=== PATIENT | female | born 1980 | race Hispanic/Latino ===

== ENCOUNTER 2022-08-31 12:54 | Inpatient (IN) | payer MEDICAID, OTHER ==
[~2022-08-31] VITALS: Ht 160 cm; Wt 84.8 kg
[2022-08-31] MEDS ORDERED: LABETALOL 20MG SYG IV ONE ×2 (13:00→15:00)
[2022-08-31] MEDS ORDERED: CEFTRIAXONE 1G VIAL IVP ONE (13:00)
[2022-08-31 13:14] LABS: BASOPHILS % (AUTO) 0.2 % (0.0-5.0); EOSINOPHILS % (AUTO) 1.9 % (0.0-8.0); HEMATOCRIT 34.4 % (36-48); LYMPHOCYTES % (AUTO) 13.4 % (21.0-51.0); MEAN CORPUSCULAR HEMOGLOBIN 26.7 pg (27.0-33.0); MEAN CORPUSCULAR HGB CONC 32.8 g/dL (32.0-36.0); MEAN CORPUSCULAR VOLUME 81.1 fL (79-99); MONOCYTES % (AUTO) 6.9 % (3.0-13.0); NEUTROPHILS % (AUTO) 77.1 % (40.0-77.0); PLATELET COUNT (AUTO) 253 K/uL (130-400); RED BLOOD CELL COUNT(AUTO) 4.24 MIL/uL (4.00-5.50); RED CELL DISTRIBUTION WIDTH 14.6 % (11.0-15.5); WHITE BLOOD COUNT (AUTO) 5.8 K/uL (4.8-10.8)
[2022-08-31 13:28] LABS: ALBUMIN 1.4 g/dL (3.5-5.0); CREATININE 0.7 mg/dL (0.5-1.5); TOTAL PROTEIN, SERUM 5.5 g/dL (6.0-8.3)
[2022-08-31 13:31] LABS: POTASSIUM 2.7 mmol/L (3.5-5.1)
[2022-08-31] MEDS ORDERED: POTASSIUM CHLORIDE 20 MEQ/100 ML BAG IV SCH ×2 (15:00→22:30)
[2022-08-31] MEDS ORDERED: ASPIRIN 81MG CHEW TAB PO ONE (15:00)
[2022-08-31] MEDS ORDERED: HYDRALAZINE 20MG/ML VIAL IV ONE (15:30)
[2022-08-31] MEDS: HYDRALAZINE 25MG TABLET PO SCH (15:39)
[2022-08-31] MEDS ORDERED: KCL 20 MEQ ERTAB PO ONE ×2 (17:30→22:30)
[2022-08-31] MEDS ORDERED: AMLODIPINE 5 MG TAB PO ONE (18:00)
[2022-08-31] MEDS ORDERED: LABETALOL 20MG VIAL IV PRN (18:00)
[2022-08-31 18:08] LABS: HEMOGLOBIN A1C 5.5 % (4.0-6.0)
[2022-08-31 18:22] LABS: APPEARANCE,URINE CLOUDY (CLEAR); BILIRUBIN,URINE NEGATIVE (NEGATIVE); COLOR,URINE LIGHT-YELLOW (YELLOW); GLUCOSE, URINE (UA) NEGATIVE (NEGATIVE); KETONES,URINE NEGATIVE (NEGATIVE); LEUKOCYTE ESTERASE ,URINE NEGATIVE Leu/uL (NEGATIVE); NITRATE,URINE NEGATIVE (NEGATIVE); OCCULT BLOOD,URINE MODERATE (NEGATIVE); PH,URINE 6.5 (5.0-8.0); PROTEIN,URINE 600 mg/dL (NEGATIVE); UROBILINOGEN,URINE 0.2 mg/dL (0.2-1.0)
[2022-08-31 18:25] LABS: HCG,QUALITATIVE URINE NEGATIVE (NEGATIVE)
[2022-08-31 18:28] LABS: AMPHET/METH SCREEN,URINE NEGATIVE (NEGATIVE); BARBITURATE SCREEN, URINE NEGATIVE (NEGATIVE); BENZODIAZEPINES SCREEN,URINE NEGATIVE (NEGATIVE); CANNABINOID SCREEN,URINE NEGATIVE (NEGATIVE); COCAINE SCREEN,URINE NEGATIVE (NEGATIVE); OPIATE SCREEN,URINE NEGATIVE (NEGATIVE); PHENCYCLIDINE SCREEN,URINE NEGATIVE (NEGATIVE)
[2022-08-31 18:34] LABS: BACTERIA,URINE FEW /HPF (None Seen); MUCUS,URINE RARE LPF (None Seen); SQUAMOUS EPITHELIAL CELL,UR FEW /HPF (0-2)
[2022-08-31 20:24] LABS: CREATININE 0.7 mg/dL (0.5-1.5)
[2022-08-31 20:33] LABS: POTASSIUM 2.5 mmol/L (3.5-5.1)
[2022-08-31 22:45] VITALS: BP 150/74
[2022-09-01] VITALS (7 sets, daily range): BP systolic 152–193; BP diastolic 84–97
[2022-09-01] MEDS: AMLODIPINE 5 MG TAB PO SCH (08:25)
[2022-09-01] MEDS ORDERED: POTASSIUM CHLORIDE 10% ELIXIR 20 MEQ/15 ML UDCUP PO PRN (08:30)
[2022-09-01] MEDS: SPIRONOLACTONE 25 MG TAB PO SCH (08:45)
[2022-09-01 09:02] LABS: CREATININE 0.7 mg/dL (0.5-1.5); MAGNESIUM 1.5 mg/dL (1.80-2.40)
[2022-09-01 09:07] LABS: HEMATOCRIT 32.7 % (36-48); MEAN CORPUSCULAR HEMOGLOBIN 26.6 pg (27.0-33.0); MEAN CORPUSCULAR HGB CONC 32.1 g/dL (32.0-36.0); RED BLOOD CELL COUNT(AUTO) 3.94 MIL/uL (4.00-5.50); RED CELL DISTRIBUTION WIDTH 14.6 % (11.0-15.5); WHITE BLOOD COUNT (AUTO) 6.7 K/uL (4.8-10.8)
[2022-09-01 09:08] LABS: POTASSIUM 2.5 mmol/L (3.5-5.1)
[2022-09-01] MEDS: POTASSIUM CHLORIDE 20MEQ/100ML 100 ML IV PRN ×2 (09:18→11:23)
[2022-09-01] MEDS: LIDOCAINE HCL-MPF 1% 2ML VIAL IV PRN ×2 (09:20→11:23)
[2022-09-01] MEDS: MAGNESIUM 2GM PREMIX 50ML 50 ML IV PRN (09:21)
[2022-09-01 09:22] LABS: ALBUMIN 1.4 g/dL (3.5-5.0); TOTAL PROTEIN, SERUM 5.4 g/dL (6.0-8.3)
[2022-09-01] MEDS ORDERED: PROPOFOL 10 MG/ML 20ML VIAL IV ONE (14:30)
[2022-09-01] MEDS: HYDRALAZINE 25MG TABLET PO SCH (14:33)
[2022-09-01] MEDS ORDERED: GLYCOPYRROLATE 1 MG/5 ML SYRINGE ONE (14:41)
[2022-09-01] MEDS ORDERED: FENTANYL CITRATE PF 50 MCG/1 ML 2ML VIAL ONE (14:50)
[2022-09-01] MEDS: LABETALOL 20MG SYG IV PRN ×2 (16:50→23:58)
[2022-09-01] MEDS: KCL 20 MEQ ERTAB PO PRN ×3 (17:55→22:59)
[2022-09-02] VITALS (7 sets, daily range): BP systolic 160–196; BP diastolic 87–110
[2022-09-02 04:36] LABS: HEPATITIS A IGM ANTIBODY Non-Reactive (Nonreactive); HEPATITIS B CORE IGM ANTIBODY Non-Reactive (Negative); HEPATITIS B SURFACE ANTIGEN Non-Reactive (Nonreactive); HEPATITIS C ANTIBODY Non-Reactive (Nonreactive)
[2022-09-02 05:14] LABS: MEAN CORPUSCULAR HEMOGLOBIN 26.6 pg (27.0-33.0); MEAN CORPUSCULAR HGB CONC 31.2 g/dL (32.0-36.0); MEAN CORPUSCULAR VOLUME 85.3 fL (79-99); PLATELET COUNT (AUTO) 257 K/uL (130-400); RED BLOOD CELL COUNT(AUTO) 3.87 MIL/uL (4.00-5.50); RED CELL DISTRIBUTION WIDTH 14.9 % (11.0-15.5); WHITE BLOOD COUNT (AUTO) 5.9 K/uL (4.8-10.8)
[2022-09-02 05:17] LABS: ALBUMIN 1.3 g/dL (3.5-5.0); CREATININE 0.5 mg/dL (0.5-1.5); MAGNESIUM 1.8 mg/dL (1.80-2.40); PHOSPHORUS 3.7 mg/dL (2.5-4.9); POTASSIUM 3.9 mmol/L (3.5-5.1); TOTAL PROTEIN, SERUM 5.5 g/dL (6.0-8.3); URIC ACID 6.3 mg/dL (2.6-7.2)
[2022-09-02 05:40] LABS: % IRON SATURATION 14.5 % (22-44)
[2022-09-02] MEDS: MAGNESIUM 2GM PREMIX 50ML 50 ML IV PRN (05:46)
[2022-09-02 06:25] LABS: LYMPHOCYTES % (MANUAL) 10 % (22-44); MAN.DIFF COMMENT-IMPRESSION MANUAL DIFFERENTIAL; MONOCYTES % (MANUAL) 2 % (2-9); PLATELET MORPHOLOGY COMMENT ADEQUATE; SEGMENTED NEUTROPHILS % 88 % (40-70)
[2022-09-02] MEDS: LOSARTAN 100 MG TABLET PO SCH (08:26)
[2022-09-02] MEDS: SPIRONOLACTONE 25 MG TAB PO SCH (08:27)
[2022-09-02] MEDS: AMLODIPINE 5 MG TAB PO SCH ×2 (08:28→10:02)
[2022-09-02] MEDS: HYDRALAZINE 25MG TABLET PO SCH (08:29)
[2022-09-02] MEDS ORDERED: HYDRALAZINE 25MG TABLET PO SCH (09:00)
[2022-09-02] MEDS ORDERED: LISINOPRIL 5 MG TABLET PO ONE (09:00)
[2022-09-02] MEDS: LABETALOL 20MG SYG IV PRN ×2 (14:56→23:25)
[2022-09-02] MEDS ORDERED: COMPOUND IV MISC 1 EACH IVSOLN MISC PRN (16:00)
[2022-09-03 03:01] VITALS: BP 171/93
[2022-09-03 05:01] LABS: BASOPHILS % (AUTO) 0.4 % (0.0-5.0); EOSINOPHILS % (AUTO) 3.4 % (0.0-8.0); HEMATOCRIT 31.6 % (36-48); LYMPHOCYTES % (AUTO) 17.8 % (21.0-51.0); MEAN CORPUSCULAR HEMOGLOBIN 26.2 pg (27.0-33.0); MEAN CORPUSCULAR HGB CONC 32.3 g/dL (32.0-36.0); MEAN CORPUSCULAR VOLUME 81.2 fL (79-99); MONOCYTES % (AUTO) 7.1 % (3.0-13.0); NEUTROPHILS % (AUTO) 70.9 % (40.0-77.0); PLATELET COUNT (AUTO) 231 K/uL (130-400); RED BLOOD CELL COUNT(AUTO) 3.89 MIL/uL (4.00-5.50); RED CELL DISTRIBUTION WIDTH 14.8 % (11.0-15.5); WHITE BLOOD COUNT (AUTO) 5.2 K/uL (4.8-10.8)
[2022-09-03 05:13] LABS: ALBUMIN 1.3 g/dL (3.5-5.0); CREATININE 0.6 mg/dL (0.5-1.5); POTASSIUM 3.1 mmol/L (3.5-5.1); TOTAL PROTEIN, SERUM 5.2 g/dL (6.0-8.3)
[2022-09-03 05:15] LABS: B-TYPE NATRIURETIC PEPTIDE 363 pg/mL (0-100)
[2022-09-03] MEDS: LEVOTHYROXINE 25 MCG TABLET PO SCH (06:05)
[2022-09-03] MEDS: KCL 20 MEQ ERTAB PO PRN ×3 (06:05→10:54)
[2022-09-03 07:40] VITALS: BP 160/108
[2022-09-03] MEDS: SPIRONOLACTONE 25 MG TAB PO SCH (08:25)
[2022-09-03] MEDS: LOSARTAN 100 MG TABLET PO SCH (08:25)
[2022-09-03] MEDS: AMLODIPINE 5 MG TAB PO SCH (08:25)
[2022-09-03] MEDS: IRON SUCROSE COMPLEX 300 MG in 0.9% NACL 250ML 250 ML IV SCH (08:30)
[2022-09-03 11:40] VITALS: BP 176/99
[2022-09-03] MEDS ORDERED: FUROSEMIDE 40MG VIAL IV SCH (12:00)
[2022-09-03] MEDS: LABETALOL 20MG SYG IV PRN (12:37)
[2022-09-03 15:40] VITALS: BP 146/97
[2022-09-03] MEDS: HYDRALAZINE 25MG TABLET PO SCH (19:06)
[2022-09-03] MEDS ORDERED: METOPROLOL TARTRATE 50 MG TAB ONE (19:16)
[2022-09-03] MEDS: METOPROLOL TARTRATE 50 MG TAB PO SCH (19:32)
[2022-09-03 19:33] VITALS: BP 175/92
[2022-09-03 23:07] VITALS: BP 169/94
[2022-09-04 03:55] VITALS: BP 161/88
[2022-09-04 04:55] LABS: BASOPHILS % (AUTO) 0.5 % (0.0-5.0); EOSINOPHILS % (AUTO) 3.8 % (0.0-8.0); HEMATOCRIT 32.5 % (36-48); LYMPHOCYTES % (AUTO) 14.9 % (21.0-51.0); MEAN CORPUSCULAR HEMOGLOBIN 26.3 pg (27.0-33.0); MEAN CORPUSCULAR HGB CONC 31.7 g/dL (32.0-36.0); MEAN CORPUSCULAR VOLUME 83.1 fL (79-99); MONOCYTES % (AUTO) 8.2 % (3.0-13.0); NEUTROPHILS % (AUTO) 72.3 % (40.0-77.0); PLATELET COUNT (AUTO) 232 K/uL (130-400); RED BLOOD CELL COUNT(AUTO) 3.91 MIL/uL (4.00-5.50); RED CELL DISTRIBUTION WIDTH 14.8 % (11.0-15.5); WHITE BLOOD COUNT (AUTO) 6.3 K/uL (4.8-10.8)
[2022-09-04 05:10] LABS: CREATININE 0.5 mg/dL (0.5-1.5); POTASSIUM 3.5 mmol/L (3.5-5.1)
[2022-09-04] MEDS: LEVOTHYROXINE 25 MCG TABLET PO SCH (06:03)
[2022-09-04] MEDS: KCL 20 MEQ ERTAB PO PRN ×2 (06:04→08:25)
[2022-09-04 07:50] VITALS: BP 136/69
[2022-09-04] MEDS: IRON SUCROSE COMPLEX 300 MG in 0.9% NACL 250ML 250 ML IV SCH (08:23)
[2022-09-04] MEDS: AMLODIPINE 5 MG TAB PO SCH (08:24)
[2022-09-04] MEDS: METOPROLOL TARTRATE 50 MG TAB PO SCH ×2 (08:24→20:12)
[2022-09-04] MEDS: LOSARTAN 100 MG TABLET PO SCH (08:24)
[2022-09-04] MEDS: SPIRONOLACTONE 25 MG TAB PO SCH (08:24)
[2022-09-04 11:55] VITALS: BP 137/89
[2022-09-04] MEDS ORDERED: FUROSEMIDE 40MG VIAL IV SCH (12:00)
[2022-09-04 16:10] VITALS: BP 142/82
[2022-09-04 20:30] VITALS: BP 144/86
[2022-09-04] MEDS: LABETALOL 20MG SYG IV PRN (23:45)
[2022-09-05] VITALS (13 sets, daily range): BP systolic 142–186; BP diastolic 76–96
[2022-09-05] MEDS: LEVOTHYROXINE 25 MCG TABLET PO SCH (05:03)
[2022-09-05 05:24] LABS: BASOPHILS % (AUTO) 0.5 % (0.0-5.0); EOSINOPHILS % (AUTO) 3.4 % (0.0-8.0); HEMATOCRIT 32.9 % (36-48); LYMPHOCYTES % (AUTO) 15.6 % (21.0-51.0); MEAN CORPUSCULAR HEMOGLOBIN 26.6 pg (27.0-33.0); MEAN CORPUSCULAR VOLUME 85.9 fL (79-99); MONOCYTES % (AUTO) 9.1 % (3.0-13.0); NEUTROPHILS % (AUTO) 70.9 % (40.0-77.0); PLATELET COUNT (AUTO) 236 K/uL (130-400); RED BLOOD CELL COUNT(AUTO) 3.83 MIL/uL (4.00-5.50); RED CELL DISTRIBUTION WIDTH 14.7 % (11.0-15.5); WHITE BLOOD COUNT (AUTO) 5.6 K/uL (4.8-10.8)
[2022-09-05 05:37] LABS: INR 0.95 (0.85-1.15); PROTHROMBIN TIME 10.4 SEC (9.6-11.6)
[2022-09-05 05:38] LABS: PARTIAL THROMBOPLASTIN TIME 33.1 SEC (26.3-35.5)
[2022-09-05 05:48] LABS: CREATININE 0.6 mg/dL (0.5-1.5); PHOSPHORUS 4.5 mg/dL (2.5-4.9); POTASSIUM 3.3 mmol/L (3.5-5.1)
[2022-09-05] MEDS: SPIRONOLACTONE 25 MG TAB PO SCH (08:04)
[2022-09-05] MEDS: LOSARTAN 100 MG TABLET PO SCH (08:05)
[2022-09-05] MEDS: AMLODIPINE 5 MG TAB PO SCH (08:05)
[2022-09-05] MEDS: HYDRALAZINE 25MG TABLET PO SCH (08:05)
[2022-09-05] MEDS: METOPROLOL TARTRATE 50 MG TAB PO SCH ×2 (08:05→20:25)
[2022-09-05] MEDS: IRON SUCROSE COMPLEX 300 MG in 0.9% NACL 250ML 250 ML IV SCH (09:13)
[2022-09-05] MEDS ORDERED: FENTANYL CITRATE PF 50 MCG/1 ML 2ML VIAL ONE (15:05)
[2022-09-05] MEDS ORDERED: MIDAZOLAM HCL 1 MG/ML 2ML VIAL ONE (15:05)
[2022-09-05] MEDS ORDERED: LIDOCAINE HCL 1% 20 ML VIAL ONE (16:23)
[2022-09-06 03:27] VITALS: BP 157/94
[2022-09-06 05:34] LABS: MEAN CORPUSCULAR HEMOGLOBIN 26.3 pg (27.0-33.0); MEAN CORPUSCULAR HGB CONC 31.5 g/dL (32.0-36.0); MEAN CORPUSCULAR VOLUME 83.5 fL (79-99); RED BLOOD CELL COUNT(AUTO) 3.95 MIL/uL (4.00-5.50); RED CELL DISTRIBUTION WIDTH 14.7 % (11.0-15.5); WHITE BLOOD COUNT (AUTO) 5.3 K/uL (4.8-10.8)
[2022-09-06 05:51] LABS: ALBUMIN 1.4 g/dL (3.5-5.0); CREATININE 0.6 mg/dL (0.5-1.5); POTASSIUM 3.2 mmol/L (3.5-5.1); TOTAL PROTEIN, SERUM 5.3 g/dL (6.0-8.3)
[2022-09-06] MEDS: LEVOTHYROXINE 25 MCG TABLET PO SCH (06:02)
[2022-09-06] MEDS: KCL 20 MEQ ERTAB PO PRN ×3 (06:37→14:00)
[2022-09-06 08:00] VITALS: BP 154/86
[2022-09-06] MEDS: METOPROLOL TARTRATE 50 MG TAB PO SCH ×2 (09:01→19:37)
[2022-09-06] MEDS: SPIRONOLACTONE 25 MG TAB PO SCH (09:01)
[2022-09-06] MEDS: AMLODIPINE 5 MG TAB PO SCH (09:01)
[2022-09-06] MEDS: LOSARTAN 100 MG TABLET PO SCH (09:01)
[2022-09-06] MEDS: HYDRALAZINE 25MG TABLET PO SCH (09:02)
[2022-09-06 11:39] VITALS: BP 139/85
[2022-09-06] MEDS: FOLIC ACID 1 MG TABLET PO SCH (13:55)
[2022-09-06] MEDS: CYANOCOBALAMIN (VITAMIN B-12) 1,000 MCG TABLET PO SCH (13:55)
[2022-09-06 16:00] VITALS: BP 133/76
[2022-09-06 20:14] VITALS: BP 147/85
[2022-09-06 23:39] VITALS: BP 130/81
[2022-09-07 04:22] VITALS: BP 142/76
[2022-09-07] MEDS: LEVOTHYROXINE 25 MCG TABLET PO SCH (05:17)
[2022-09-07] MEDS: KCL 20 MEQ ERTAB PO PRN ×2 (05:18→12:55)
[2022-09-07 08:00] VITALS: BP 138/77
[2022-09-07] MEDS: LOSARTAN 100 MG TABLET PO SCH (08:54)
[2022-09-07] MEDS: FOLIC ACID 1 MG TABLET PO SCH (08:54)
[2022-09-07] MEDS: AMLODIPINE 5 MG TAB PO SCH (08:54)
[2022-09-07] MEDS: SPIRONOLACTONE 25 MG TAB PO SCH (08:54)
[2022-09-07] MEDS: CYANOCOBALAMIN (VITAMIN B-12) 1,000 MCG TABLET PO SCH (08:54)
[2022-09-07] MEDS: METOPROLOL TARTRATE 50 MG TAB PO SCH (08:54)
[2022-09-07] MEDS: HYDRALAZINE 25MG TABLET PO SCH (08:55)
[2022-09-07] MEDS ORDERED: POTASSIUM CHLORIDE 20 MEQ/100 ML BAG IV SCH (09:30)
[2022-09-07] MEDS: MAGNESIUM 2GM PREMIX 50ML 50 ML IV PRN (10:08)
[2022-09-07] MEDS: LIDOCAINE HCL-MPF 1% 2ML VIAL IV PRN (10:23)
[2022-09-07 11:30] VITALS: BP 135/82
[2022-09-07] MEDS ORDERED: MAGNESIUM OXIDE 400 MG TABLET PO SCH (12:00)
[2022-09-07] MEDS ORDERED: CYAN-52 PO (12:40)
[2022-09-07] MEDS ORDERED: AMLO5TAB4 PO (12:40)
[2022-09-07] MEDS ORDERED: LEVO25TA9 PO (12:40)
[2022-09-07] MEDS ORDERED: FOLI1 PO (12:40)
[2022-09-07] MEDS ORDERED: SPIR25TA6 PO (12:40)
[2022-09-07] MEDS ORDERED: METO50 PO (12:40)
[2022-09-07 16:00] VITALS: BP 140/82
== END 2022-09-07 18:45 | disposition home or self-care (01) | DRG 280 ==
LOC: EDH 12:54 → EDHIP 12:55 → 4BH 23:04
PROVIDERS: ADMIT Internal Medicine; ATTEND Internal Medicine
PROC: 0TB13ZX Excision of Left Kidney, Percutaneous Approach, Diagnostic (ICD-10-PCS; principal; 2022-09-06)
DX: I13.0 Hypertensive heart and chronic kidney disease with heart failure and stage 1 through stage 4 chronic kidney disease, or unspecified chronic kidney disease (principal); I21.A1 Myocardial infarction type 2; I50.31 Acute diastolic (congestive) heart failure; I16.1 Hypertensive emergency; Z20.822 Contact with and (suspected) exposure to COVID-19; I82.612 Acute embolism and thrombosis of superficial veins of left upper extremity; I80.8 Phlebitis and thrombophlebitis of other sites; E88.09 Other disorders of plasma-protein metabolism, not elsewhere classified; E87.6 Hypokalemia; D50.9 Iron deficiency anemia, unspecified; E03.9 Hypothyroidism, unspecified; E66.9 Obesity, unspecified; J02.0 Streptococcal pharyngitis; N18.9 Chronic kidney disease, unspecified; Z91.199 Patient's noncompliance with other medical treatment and regimen due to unspecified reason; Z79.899 Other long term (current) drug therapy; Z87.441 Personal history of nephrotic syndrome
CPT/HCPCS: 36415; 50200; 70450; 71045; 76770; 76942; 80048; 80053; 80074; 80305; 81001; 81025; 82088; 82570; 82728; 83036; 83540; 83550; 83735; 83880; 84100; 84132; 84145; 84156; 84439; 84443; 84481; 84484; 84550; 85025; 85027; 85610; 85730; 86038; 86140; 86160; 86215; 86235; 86592; 87088; 87635; 93005; 93306; 93971; G0378; J0360; J0696; J1756; J1940; J2250; J2704; J3010; J3475; J3480; J3490; J7050